=== PATIENT | male | born 1960 | race Caucasian/White ===

== ENCOUNTER 2021-08-09 12:48 | Emergency (ER) | payer SELFPAY ==
[~2021-08-09] VITALS: Ht 177.8 cm; Wt 124.7 kg
--- NOTE | 2021-08-09 13:04 | NUR ---
[email or web address],medical screening exam in progress
[2021-08-09] MEDS ORDERED: APIX5TAB PO (13:13)
--- NOTE | 2021-08-09 13:19 | NUR ---
Patient discharged to home in stable condition with brisk steady gait. Written and verbal after care instructions given to patient and family. Patient verbalized understanding and compliance of instructions. Stressed follow up with primary doctor or return to ER for worsening s/s.
== END 2021-08-09 13:19 | disposition home or self-care (01) ==
LOC: ER 12:48
DX: I48.91 Unspecified atrial fibrillation (principal); Z79.01 Long term (current) use of anticoagulants; Z76.0 Encounter for issue of repeat prescription
CPT/HCPCS: A4663

== ENCOUNTER 2021-08-25 09:43 | Emergency (ER) | payer SELFPAY ==
[~2021-08-25] VITALS: Ht 177.8 cm; Wt 124.7 kg
[~2021-08-25 09:43] MED LIST: APIX5TAB PO
[2021-08-25] MEDS ORDERED: ALLO100T PO (11:14)
--- NOTE | 2021-08-25 11:17 | NUR ---
Patient discharged to home in stable condition. Written and verbal after care instructions given. Patient verbalizes understanding of instructions. Stressed follow up or return to ER for worsening s/s.
== END 2021-08-25 11:19 | disposition home or self-care (01) ==
LOC: ER 09:43
DX: M10.9 Gout, unspecified (principal); Z76.0 Encounter for issue of repeat prescription; I48.91 Unspecified atrial fibrillation; Z79.01 Long term (current) use of anticoagulants
CPT/HCPCS: A4663